=== PATIENT | male | born 1995 | race Caucasian/White ===

== ENCOUNTER 2020-04-25 16:46 | Emergency (ER) | payer BC, OTHER ==
[2020-04-25 17:03] LABS: BASOPHILS % (AUTO) 0.5 % (0.0-5.0); EOSINOPHILS % (AUTO) 0.9 % (0.0-8.0); HEMATOCRIT 48.4 % (42-54); LYMPHOCYTES % (AUTO) 25.9 % (21.0-51.0); MEAN CORPUSCULAR HEMOGLOBIN 28.1 pg (27.0-33.0); MEAN CORPUSCULAR HGB CONC 33.7 g/dL (32.0-36.0); MEAN CORPUSCULAR VOLUME 83.3 fL (79-99); MONOCYTES % (AUTO) 5.3 % (3.0-13.0); NEUTROPHILS % (AUTO) 65.4 % (40.0-77.0); PLATELET COUNT (AUTO) 290 K/uL (130-400); RED BLOOD CELL COUNT(AUTO) 5.81 MIL/uL (4.50-6.20); RED CELL DISTRIBUTION WIDTH 12.7 % (11.0-15.5); WHITE BLOOD COUNT (AUTO) 14.1 K/uL (4.8-10.8)
[2020-04-25 17:16] LABS: CARBON DIOXIDE 19 mmol/L (21-32); CHLORIDE 102 mmol/L (101-111); CREATININE 1.1 mg/dL (0.5-1.5); GLOMERULAR FILTR. RATE CALC 86 mL/min (>60); GLUCOSE,RANDOM 229 mg/dL (70-105); POTASSIUM 3.7 mmol/L (3.5-5.1); SODIUM SERUM 141 mmol/L (136-145); UREA NITROGEN, BLOOD 8 mg/dL (7-18)
[2020-04-25 17:18] LABS: INR 0.92 (0.85-1.15); PARTIAL THROMBOPLASTIN TIME 30.3 SEC (26.3-35.5)
[2020-04-25 17:21] LABS: ALANINE AMINOTRANSFERASE 32 U/L (12-78); ALBUMIN 3.8 g/dL (3.5-5.0); ASPARTATE AMINOTRANSFERASE 23 U/L (10-37); BILIRUBIN,DIRECT < 0.1 mg/dL (0.0-0.3); BILIRUBIN,TOTAL 0.3 mg/dL (0.2-1.0); CREATINE KINASE, TOTAL 160 U/L (21-232); TOTAL PROTEIN, SERUM 8.8 g/dL (6.0-8.3)
[2020-04-25] MEDS ORDERED: FOSPHENYTOIN SODIUM 500 MG/10ML VIAL IJ ONE (17:35)
[2020-04-25] MEDS ORDERED: FOSPHENYTOIN SODIUM 100 MG/2 ML VIAL IV ONE (17:36)
[2020-04-25] MEDS ORDERED: SODIUM CHLORIDE 0.9% 1000ML 1,000 ML IV ONE (17:37)
== END 2020-04-25 20:03 | disposition home or self-care (01) ==
LOC: EDH 16:46
DX: R56.9 Unspecified convulsions (principal)
CPT/HCPCS: 36415; 70450; 80048; 80076; 82550; 82948; 84484; 85025; 85610; 85730; 93005; 96365; 99285; J7030; Q2009 ×2

== ENCOUNTER 2020-12-07 19:34 | Emergency (ER) | payer BC ==
[~2020-12-07] VITALS: Ht 180.3 cm; Wt 134.3 kg
[2020-12-07 20:15] VITALS: BP 142/82
[2020-12-07] MEDS ORDERED: LACTATED RINGERS 1000ML 1,000 ML IV ONE ×2 (20:43→20:45)
[2020-12-07 21:04] LABS: BASOPHILS % (AUTO) 0.6 % (0.0-5.0); HEMATOCRIT 48.9 % (42-54); MEAN CORPUSCULAR HEMOGLOBIN 29.5 pg (27.0-33.0); MEAN CORPUSCULAR HGB CONC 36.6 g/dL (32.0-36.0); MEAN CORPUSCULAR VOLUME 80.6 fL (79-99); MONOCYTES % (AUTO) 4.2 % (3.0-13.0); NEUTROPHILS % (AUTO) 75.5 % (40.0-77.0); PLATELET COUNT (AUTO) 258 K/uL (130-400); RED BLOOD CELL COUNT(AUTO) 6.07 MIL/uL (4.50-6.20); RED CELL DISTRIBUTION WIDTH 12.7 % (11.0-15.5); WHITE BLOOD COUNT (AUTO) 10.8 K/uL (4.8-10.8)
[2020-12-07 21:19] LABS: ALBUMIN 3.6 g/dL (3.5-5.0); BILIRUBIN,TOTAL 0.7 mg/dL (0.2-1.0); CREATININE 1.1 mg/dL (0.5-1.5); POTASSIUM 5.6 mmol/L (3.5-5.1); TOTAL PROTEIN, SERUM 8.4 g/dL (6.0-8.3)
[2020-12-07 23:00] VITALS: BP 136/78
[2020-12-07] MEDS ORDERED: INSULIN HUMULIN R 100 UNIT/ML 3ML ONE (23:10)
[2020-12-07] MEDS ORDERED: INSULIN HUMULIN R 100 UNIT/ML 3ML SQ SCH (23:15)
== END 2020-12-07 23:42 | disposition home or self-care (01) ==
LOC: EDH 19:34
DX: G40.909 Epilepsy, unspecified, not intractable, without status epilepticus (principal); E86.0 Dehydration; E66.9 Obesity, unspecified; Z68.41 Body mass index [BMI] 40.0-44.9, adult
CPT/HCPCS: 36415; 80053; 85025; 96360; 99283; J1815; J7120

== ENCOUNTER 2021-05-24 22:15 | Inpatient (IN) | payer BC, OTHER ==
[~2021-05-24] VITALS: Ht 180.3 cm; Wt 129.0 kg
[2021-05-24 23:07] LABS: BASOPHILS % (AUTO) 0.7 % (0.0-5.0); EOSINOPHILS % (AUTO) 0.8 % (0.0-8.0); HEMATOCRIT 45.7 % (42-54); LYMPHOCYTES % (AUTO) 8.3 % (21.0-51.0); MEAN CORPUSCULAR HEMOGLOBIN 30.8 pg (27.0-33.0); MEAN CORPUSCULAR HGB CONC 38.3 g/dL (32.0-36.0); MEAN CORPUSCULAR VOLUME 80.5 fL (79-99); MONOCYTES % (AUTO) 5.1 % (3.0-13.0); NEUTROPHILS % (AUTO) 84.2 % (40.0-77.0); PLATELET COUNT (AUTO) 227 K/uL (130-400); RED BLOOD CELL COUNT(AUTO) 5.68 MIL/uL (4.50-6.20); RED CELL DISTRIBUTION WIDTH 13.2 % (11.0-15.5); WHITE BLOOD COUNT (AUTO) 19.9 K/uL (4.8-10.8)
[2021-05-24 23:24] LABS: BILIRUBIN,TOTAL 1.2 mg/dL (0.2-1.0); POTASSIUM 4.6 mmol/L (3.5-5.1)
[2021-05-24] MEDS ORDERED: ONDANSETRON 4MG INJ IVP ONE (23:30)
[2021-05-24] MEDS ORDERED: 0.9%NACL 1000ML 1,000 ML IV ONE (23:30)
[2021-05-24 23:35] LABS: ABG BASE EXCESS -12.9 mmol/L (-2.0-3.0); ABG HCO3 10.7 mmol/L (21.0-28.0); ABG OXYGEN SATURATION 96.2 % (95.0-99.0); ABG PCO2 21 mmHg (35-48)
[2021-05-24 23:41] LABS: PLATELET MORPHOLOGY LARGE PLTS PRESENT
[2021-05-25] VITALS (9 sets, daily range): BP systolic 125–166; BP diastolic 52–98
[2021-05-25] MEDS ORDERED: 0.9%NACL 1000ML 1,000 ML IV ONE
[2021-05-25 00:16] LABS: ALBUMIN 3.3 g/dL (3.5-5.0); TOTAL PROTEIN, SERUM 8.1 g/dL (6.0-8.3)
[2021-05-25] MEDS: INSULIN REGULAR, HUMAN 3ML 100 UNIT in 0.9%NACL 100ML 99 ML IV PRN ×2 (00:19)
[2021-05-25] MEDS ORDERED: ONDANSETRON 4MG INJ IV PRN (00:30)
[2021-05-25] MEDS ORDERED: MORPHINE 2 MG SYG IV PRN (00:30)
[2021-05-25] MEDS ORDERED: HYDRALAZINE 20MG/ML VIAL IV PRN (00:30)
[2021-05-25] MEDS ORDERED: ACETAMINOPHEN 325 MG TAB PO PRN (00:30)
[2021-05-25 00:55] LABS: APPEARANCE,URINE CLEAR (CLEAR); BILIRUBIN,URINE SMALL (NEGATIVE); COLOR,URINE YELLOW (YELLOW); GLUCOSE, URINE (UA) >=1000 mg/dL (NEGATIVE); KETONES,URINE >=80 mg/dL (NEGATIVE); LEUKOCYTE ESTERASE ,URINE NEGATIVE (NEGATIVE); NITRATE,URINE NEGATIVE (NEGATIVE); OCCULT BLOOD,URINE SMALL (NEGATIVE); PH,URINE 5.5 (5.0-8.0); PROTEIN,URINE 100 mg/dL (NEGATIVE); UROBILINOGEN,URINE 0.2 mg/dL (0.2-1.0)
[2021-05-25 01:09] LABS: BACTERIA,URINE Few /HPF (None Seen); RBC,URINE 0-1 /HPF (0-1); SQUAMOUS EPITHELIAL CELL,UR 0-2 /HPF (0-2); WBC,URINE None Seen /HPF (0-1)
[2021-05-25 01:14] LABS: CHOLESTEROL 281 mg/dL (<200); HDL CHOLESTEROL 24 mg/dL (29-71); LDL DIRECT 43 mg/dL (0-99); TRIGLYCERIDES 1560 mg/dL (30-200)
[2021-05-25] MEDS ORDERED: GLIP1TAB4 PO (01:55)
[2021-05-25] MEDS ORDERED: LACTATED RINGERS 1000ML 1,000 ML IV ONE (02:47)
[2021-05-25] MEDS: LACTATED RINGERS 1000ML IV SCH ×2 (02:53→21:56)
[2021-05-25] MEDS ORDERED: 0.9%NACL 1000ML 1,000 ML IV SCH (03:00)
[2021-05-25] MEDS ORDERED: POTASSIUM CHLORIDE 10MEQ/100ML 100 ML IV PRN (03:00)
[2021-05-25] MEDS: 0.9%NACL 1000ML 1,000 ML IV SCH ×4 (03:32→21:57)
[2021-05-25 04:02] LABS: MAGNESIUM 2.1 mg/dL (1.80-2.40); PHOSPHORUS 3.3 mg/dL (2.5-4.9)
[2021-05-25 04:44] LABS: ABG HCO3 11.7 mmol/L (21.0-28.0); ABG OXYGEN SATURATION 96.2 % (95.0-99.0); ABG PCO2 23 mmHg (35-48)
[2021-05-25 05:15] LABS: PHOSPHORUS 1.9 mg/dL (2.5-4.9); POTASSIUM 4.9 mmol/L (3.5-5.1)
[2021-05-25 05:48] LABS: CREATININE 0.9 mg/dL (0.5-1.5)
[2021-05-25 05:55] LABS: BASOPHILS % (AUTO) 0.5 % (0.0-5.0); EOSINOPHILS % (AUTO) 0.1 % (0.0-8.0); HEMATOCRIT 43.4 % (42-54); MEAN CORPUSCULAR HEMOGLOBIN 29.7 pg (27.0-33.0); MEAN CORPUSCULAR HGB CONC 35.9 g/dL (32.0-36.0); MEAN CORPUSCULAR VOLUME 82.5 fL (79-99); MONOCYTES % (AUTO) 4.7 % (3.0-13.0); NEUTROPHILS % (AUTO) 82.5 % (40.0-77.0); PLATELET COUNT (AUTO) 209 K/uL (130-400); RED BLOOD CELL COUNT(AUTO) 5.26 MIL/uL (4.50-6.20); RED CELL DISTRIBUTION WIDTH 13.2 % (11.0-15.5); WHITE BLOOD COUNT (AUTO) 18.4 K/uL (4.8-10.8)
[2021-05-25] MEDS ORDERED: ZOSYN 3.375GM +NS 50ML IV ONE (06:00)
[2021-05-25 08:44] LABS: ABG OXYGEN SATURATION 60.3 % (95.0-99.0); BASE EXCESS,VENOUS BLOOD GAS -12.1 (-2.0-3.0); HCO3,VENOUS BLOOD GAS 13.3 (21.0-28.0); PCO2,VENOUS BLOOD GAS 30 (35-48); PH,VENOUS BLOOD GAS 7.271 (7.350-7.450)
[2021-05-25 08:57] LABS: CREATININE 0.9 mg/dL (0.5-1.5); POTASSIUM 4.8 mmol/L (3.5-5.1)
[2021-05-25 09:00] LABS: MAGNESIUM 2.1 mg/dL (1.80-2.40); PHOSPHORUS 1.7 mg/dL (2.5-4.9)
[2021-05-25] MEDS: ENOXAPARIN SODIUM 30 MG/0.3 ML SQ SCH (09:00)
[2021-05-25] MEDS ORDERED: LEVE-43 PO (09:26)
[2021-05-25] MEDS: FISH OIL 1000 MG/CAP PO SCH ×2 (12:37→19:51)
[2021-05-25 13:09] LABS: ABG OXYGEN SATURATION 79.1 % (95.0-99.0); BASE EXCESS,VENOUS BLOOD GAS -11.8 (-2.0-3.0); HCO3,VENOUS BLOOD GAS 12.8 (21.0-28.0); PCO2,VENOUS BLOOD GAS 27 (35-48); PH,VENOUS BLOOD GAS 7.301 (7.350-7.450)
[2021-05-25 13:18] LABS: CREATININE 0.8 mg/dL (0.5-1.5); POTASSIUM 4.4 mmol/L (3.5-5.1)
[2021-05-25 13:21] LABS: MAGNESIUM 1.9 mg/dL (1.80-2.40); PHOSPHORUS 1.5 mg/dL (2.5-4.9)
[2021-05-25] MEDS: ZOSYN 3.375GM +NS 50ML IV SCH ×2 (13:30→21:56)
[2021-05-25 15:53] LABS: AMPHET/METH SCREEN,URINE NEGATIVE (NEGATIVE); BARBITURATE SCREEN, URINE NEGATIVE (NEGATIVE); BENZODIAZEPINES SCREEN,URINE NEGATIVE (NEGATIVE); CANNABINOID SCREEN,URINE NEGATIVE (NEGATIVE); COCAINE SCREEN,URINE NEGATIVE (NEGATIVE); OPIATE SCREEN,URINE NEGATIVE (NEGATIVE); PHENCYCLIDINE SCREEN,URINE NEGATIVE (NEGATIVE)
[2021-05-25 17:06] LABS: ABG OXYGEN SATURATION 92.3 % (95.0-99.0); BASE EXCESS,VENOUS BLOOD GAS -13.5 (-2.0-3.0); HCO3,VENOUS BLOOD GAS 10.7 (21.0-28.0); PCO2,VENOUS BLOOD GAS 22 (35-48); PH,VENOUS BLOOD GAS 7.297 (7.350-7.450)
[2021-05-25 17:07] LABS: CREATININE 0.9 mg/dL (0.5-1.5); POTASSIUM 3.9 mmol/L (3.5-5.1)
[2021-05-25 17:21] LABS: PHOSPHORUS 1.3 mg/dL (2.5-4.9)
[2021-05-25] MEDS: DEXTROSE 5 %-0.45 % NACL 1,000 ML IV PRN (19:50)
[2021-05-25] MEDS: ATORVASTATIN 40 MG TABLET PO SCH (19:51)
[2021-05-25] MEDS: LEVETIRACETAM 500 MG TABLET PO SCH (19:51)
[2021-05-25 21:23] LABS: CREATININE 0.9 mg/dL (0.5-1.5); POTASSIUM 4.2 mmol/L (3.5-5.1)
[2021-05-25 21:26] LABS: MAGNESIUM 1.9 mg/dL (1.80-2.40); PHOSPHORUS 1.2 mg/dL (2.5-4.9)
[2021-05-25] MEDS ORDERED: 0.9%NACL 50ML 100 ML IV ONE (21:54)
[2021-05-26] VITALS (24 sets, daily range): BP systolic 128–185; BP diastolic 71–98
[2021-05-26] MEDS: 0.9%NACL 1000ML 1,000 ML IV SCH ×6 (02:42→20:52)
[2021-05-26 03:28] LABS: ABG OXYGEN SATURATION 91.1 % (95.0-99.0); BASE EXCESS,VENOUS BLOOD GAS -8.6 (-2.0-3.0); HCO3,VENOUS BLOOD GAS 15.3 (21.0-28.0); PCO2,VENOUS BLOOD GAS 28 (35-48); PH,VENOUS BLOOD GAS 7.355 (7.350-7.450)
[2021-05-26] MEDS: FISH OIL 1000 MG/CAP PO SCH ×3 (03:47→20:50)
[2021-05-26] MEDS: INSULIN REGULAR, HUMAN 3ML 100 UNIT in 0.9%NACL 100ML 99 ML IV PRN ×2 (04:09)
[2021-05-26] MEDS: DEXTROSE 5 %-0.45 % NACL 1,000 ML IV PRN ×3 (04:12→20:48)
[2021-05-26 04:39] LABS: CRP QUANTITATIVE 339.7 mg/L (0.00-9.0)
[2021-05-26] MEDS: ZOSYN 3.375GM +NS 50ML IV SCH ×3 (04:42→20:48)
[2021-05-26 06:25] LABS: CREATININE 0.9 mg/dL (0.5-1.5); POTASSIUM 3.5 mmol/L (3.5-5.1)
[2021-05-26] MEDS: FENOFIBRATE NANOCRYSTALLIZED 145 MG TAB PO SCH (08:34)
[2021-05-26] MEDS: LEVETIRACETAM 500 MG TABLET PO SCH ×2 (08:34→20:50)
[2021-05-26] MEDS: ENOXAPARIN SODIUM 30 MG/0.3 ML SQ SCH (08:35)
[2021-05-26] MEDS: KCL 20 MEQ ERTAB PO SCH ×2 (08:35→20:51)
[2021-05-26] MEDS ORDERED: LABETALOL 20MG VIAL IV PRN (11:00)
[2021-05-26 14:33] LABS: CREATININE 0.8 mg/dL (0.5-1.5); POTASSIUM 3.6 mmol/L (3.5-5.1)
[2021-05-26] MEDS ORDERED: 0.9%NACL 50ML 50 ML IV ONE (20:26)
[2021-05-26] MEDS: ATORVASTATIN 40 MG TABLET PO SCH (20:50)
[2021-05-26] MEDS: LACTATED RINGERS 1000ML IV SCH (20:51)
[2021-05-27] VITALS (15 sets, daily range): BP systolic 124–148; BP diastolic 72–94
[2021-05-27] MEDS: INSULIN REGULAR, HUMAN 3ML 100 UNIT in 0.9%NACL 100ML 99 ML IV PRN ×2 (00:36)
[2021-05-27] MEDS ORDERED: 0.9%NACL 50ML 50 ML IV ONE (03:39)
[2021-05-27] MEDS: ZOSYN 3.375GM +NS 50ML IV SCH ×2 (03:51→13:53)
[2021-05-27] MEDS: FISH OIL 1000 MG/CAP PO SCH ×3 (03:52→21:49)
[2021-05-27 04:02] LABS: CREATININE 0.7 mg/dL (0.5-1.5); POTASSIUM 3.2 mmol/L (3.5-5.1)
[2021-05-27] MEDS: DEXTROSE 5 %-0.45 % NACL 1,000 ML IV PRN (04:11)
[2021-05-27 05:58] LABS: BASOPHILS % (AUTO) 0.4 % (0.0-5.0); EOSINOPHILS % (AUTO) 1.2 % (0.0-8.0); HEMATOCRIT 36.4 % (42-54); LYMPHOCYTES % (AUTO) 15.3 % (21.0-51.0); MEAN CORPUSCULAR HEMOGLOBIN 28.4 pg (27.0-33.0); MEAN CORPUSCULAR HGB CONC 34.1 g/dL (32.0-36.0); MEAN CORPUSCULAR VOLUME 83.5 fL (79-99); MONOCYTES % (AUTO) 6.5 % (3.0-13.0); NEUTROPHILS % (AUTO) 75.4 % (40.0-77.0); PLATELET COUNT (AUTO) 194 K/uL (130-400); RED BLOOD CELL COUNT(AUTO) 4.36 MIL/uL (4.50-6.20); RED CELL DISTRIBUTION WIDTH 13.7 % (11.0-15.5); WHITE BLOOD COUNT (AUTO) 11.1 K/uL (4.8-10.8)
[2021-05-27] MEDS ORDERED: INSULIN GLARGINE 100 UNITS/ML 10 ML VIAL SQ ONE (06:30)
[2021-05-27] MEDS: INSULIN HUMULIN R 100 UNIT/ML 3ML SQ SCH ×7 (07:09→20:40)
[2021-05-27] MEDS: FENOFIBRATE NANOCRYSTALLIZED 145 MG TAB PO SCH (07:59)
[2021-05-27] MEDS: LEVETIRACETAM 500 MG TABLET PO SCH ×2 (07:59→21:49)
[2021-05-27] MEDS: ENOXAPARIN SODIUM 30 MG/0.3 ML SQ SCH (08:00)
[2021-05-27] MEDS: KCL 20 MEQ ERTAB PO SCH (08:47)
[2021-05-27] MEDS: ATORVASTATIN 40 MG TABLET PO SCH (21:48)
[2021-05-28 04:14] VITALS: BP 115/72
[2021-05-28] MEDS: FISH OIL 1000 MG/CAP PO SCH (05:26)
[2021-05-28] MEDS: INSULIN HUMULIN R 100 UNIT/ML 3ML SQ SCH ×4 (05:26→12:18)
[2021-05-28 07:21] LABS: BASOPHILS % (AUTO) 0.7 % (0.0-5.0); EOSINOPHILS % (AUTO) 2.1 % (0.0-8.0); LYMPHOCYTES % (AUTO) 22.6 % (21.0-51.0); MEAN CORPUSCULAR VOLUME 84.9 fL (79-99); NEUTROPHILS % (AUTO) 65.9 % (40.0-77.0); PLATELET COUNT (AUTO) 228 K/uL (130-400); RED BLOOD CELL COUNT(AUTO) 4.71 MIL/uL (4.50-6.20); RED CELL DISTRIBUTION WIDTH 13.9 % (11.0-15.5); WHITE BLOOD COUNT (AUTO) 8.5 K/uL (4.8-10.8)
[2021-05-28 07:35] LABS: CREATININE 0.7 mg/dL (0.5-1.5); POTASSIUM 3.2 mmol/L (3.5-5.1)
[2021-05-28 07:50] VITALS: BP 136/96
[2021-05-28] MEDS: KCL 20 MEQ ERTAB PO SCH ×2 (08:30→09:25)
[2021-05-28] MEDS ORDERED: KCL 20 MEQ ERTAB PO SCH (08:30)
[2021-05-28] MEDS: LEVETIRACETAM 500 MG TABLET PO SCH (09:24)
[2021-05-28] MEDS: FENOFIBRATE NANOCRYSTALLIZED 145 MG TAB PO SCH (09:25)
[2021-05-28] MEDS: ENOXAPARIN SODIUM 30 MG/0.3 ML SQ SCH (09:25)
[2021-05-28] MEDS ORDERED: FENO145T26 PO (10:18)
[2021-05-28] MEDS ORDERED: GLIP1TAB6 PO (10:18)
[2021-05-28] MEDS ORDERED: ATOR40TA69 PO (10:18)
[2021-05-28 11:25] VITALS: BP 138/79
[2021-05-28 12:36] LABS: HEMOGLOBIN A1C 11.6 % (4.0-6.0)
== END 2021-05-28 14:30 | disposition home or self-care (01) | DRG 438 ==
LOC: EDH 22:15 → EDHIP 22:16 → 2DH 05-25 15:01 → 3BH 05-27 12:34
PROVIDERS: ADMIT Hospitalist; ATTEND Hospitalist
DX: K85.90 Acute pancreatitis without necrosis or infection, unspecified (principal); E10.10 Type 1 diabetes mellitus with ketoacidosis without coma; E87.1 Hypo-osmolality and hyponatremia; R65.10 Systemic inflammatory response syndrome (SIRS) of non-infectious origin without acute organ dysfunction; E10.65 Type 1 diabetes mellitus with hyperglycemia; E86.0 Dehydration; G40.909 Epilepsy, unspecified, not intractable, without status epilepticus; D72.828 Other elevated white blood cell count; E66.9 Obesity, unspecified; R74.8 Abnormal levels of other serum enzymes; E86.1 Hypovolemia; Z68.39 Body mass index [BMI] 39.0-39.9, adult; Z79.4 Long term (current) use of insulin
CPT/HCPCS: 36415; 36600; 74176; 80048; 80053; 80061; 80305; 81001; 82010; 82330; 82435; 82803; 82947; 82948; 83036; 83605; 83615; 83690; 83735; 84100; 84132; 84145; 84295; 84478; 85018; 85025; 86140; 87040; 93005; 99291; G0378; J1650; J1815; J2405; J2543; J7030; J7042; J7120